=== PATIENT | male | born 1995 | race Caucasian/White ===

== ENCOUNTER 2020-04-20 00:53 | Emergency (ER) | payer BC ==
[2020-04-20] MEDS ORDERED: Albuterol HFA 18 Gm Inhaler ONE (01:03)
--- NOTE | 2020-04-20 01:11 | EDM.PDOC ---
ED HPI GENERAL MEDICAL PROBLEM - General Chief Complaint: Respiratory Problem Stated Complaint: MED. CLEARENCE Time Seen by Provider: 04/20/20 01:08 Source of Information: Reports: Patient History Limitations: Reports: No Limitations - History of Present Illness INITIAL COMMENTS - FREE TEXT/NARRATIVE: Patient is a 25-year-old male who presents today for wheezing. Patient is in police custody and his inhaler has and would not give it to him today. Patient denies any cough fevers or chills. Patient states he has been using inhaler daily since he has been out of his Breo. - Related Data Allergies Allergy/AdvReac Type Severity Reaction Status Date / Time No Known Allergies Allergy Verified 04/20/20 01:22 Home Meds: Home Meds Albuterol Sulfate [Albuterol Sulfate Hfa] 18 gm IH ASDIRECTED 04/20/20 [History] Fluticasone/Vilanterol [Breo Ellipta 200-25 MCG Inhalation Kit] 1 each IH ASDIR ECTED 04/20/20 [History] Fluticasone/Vilanterol [Breo Ellipta 200-25 MCG Inhalation Kit] 1 each IH DAILY 30 Days #1 blst.w.dev 04/20/20 [Rx] ED ROS GENERAL - Review of Systems Review Of Systems: See Below Constitutional: Reports: No Symptoms HEENT: Reports: No Symptoms Respiratory: Reports: Wheezing Cardiovascular: Reports: No Symptoms Endocrine: Reports: No Symptoms GI/Abdominal: Reports: No Symptoms : Reports: No Symptoms Musculoskeletal: Reports: No Symptoms Skin: Reports: No Symptoms Neurological: Reports: No Symptoms Psychiatric: Reports: No Symptoms Hematologic/Lymphatic: Reports: No Symptoms Immunologic: Reports: No Symptoms ED EXAM, GENERAL - Physical Exam Exam: See Below Exam Limited By: No Limitations General Appearance: Alert, No Apparent Distress Respiratory/Chest: No Respiratory Distress, Lungs Clear Cardiovascular: Normal Peripheral Pulses, Regular Rate, Rhythm GI/Abdominal: Normal Bowel Sounds, Soft, Non-Tender Back Exam: Full Range of Motion Extremities: Normal Inspection Neurological: Alert, Oriented Course - Vital Signs Last Recorded V/S: Last Vital Signs Temp 97.0 F 04/20/20 01:08 Pulse 97 04/20/20 01:08 Resp 16 04/20/20 01:08 BP 140/77 04/20/20 01:08 Pulse Ox 97 04/20/20 01:08 - Orders/Labs/Meds Orders: Active Orders 24 hr Category Date Time Status RT Post Treatment Assessment [RC] Click to Edit Care 04/20/20 01:16 Active RT Pre-Treatment Assessment [RC] Click to Edit Care 04/20/20 01:16 Active Meds: Medications Discontinued Medications Generic Name Dose Route Start Last Admin Trade Name Marco A PRN Reason Stop Dose Admin Albuterol Confirm 04/20/20 01:03 04/20/20 01:17 Ventolin Hfa Administered 04/20/20 01:04 Not Given Dose 18 gm .ROUTE .STK-MED ONE Albuterol 1 gm 04/20/20 01:16 04/20/20 01:18 Ventolin Hfa INH 04/20/20 01:17 2 puff QID ONE Administration - Re-Assessments/Exams Free Text/Narrative Re-Assessment/Exam: 04/20/20 01:24 Pt's breathing has improved. Patient will be discharged into police custody with refills of his home prescription. Departure - Departure Time of Disposition: 01:24 Disposition: Home, Self-Care 01 Condition: Good Clinical Impression: Asthma - Discharge Information *PRESCRIPTION DRUG MONITORING PROGRAM REVIEWED*: Not Applicable *COPY OF PRESCRIPTION DRUG MONITORING REPORT IN PATIENT ALLYN: Not Applicable Prescriptions: Fluticasone/Vilanterol [Breo Ellipta 200-25 MCG Inhalation Kit] 1 each IH DAILY 30 Days #1 blst.w.dev Instructions: Asthma, Adult Referrals: PCP,None [Primary Care Provider] - Forms: ED Department Discharge Additional Instructions: The following information is given to patients seen in the emergency department who are being discharged to home. This information is to outline your options for follow-up care. We provide all patients seen in our emergency department with a follow-up referral. The need for follow-up, as well as the timing and circumstances, are variable depending upon the specifics of your emergency department visit. If you don't have a primary care physician on staff, we will provide you with a referral. We always advise you to contact your personal physician following an emergency department visit to inform them of the circumstance of the visit and for follow-up with them and/or the need for any referrals to a consulting specialist. The emergency department will also refer you to a specialist when appropriate. This referral assures that you have the opportunity for follow-up care with a specialist. All of these measure are taken in an effort to provide you with optimal care, which includes your follow-up. Under all circumstances we always encourage you to contact your private physician who remains a resource for coordinating your care. When calling for follow-up care, please make the office aware that this follow-up is from your recent emergency room visit. If for any reason you are refused follow-up, please contact the [facility] Emergency Department at and asked to speak to the emergency department charge nurse. Please follow up with your primary care physician. If you do not have a primary care physician, see below: [facility] [address] [place] [id number] My [facility] [address] [place] [address] Follow-up with your primary care physician when you are released. Please continue to use your medications as needed. If you have any increased shortness of breath please return to the ED. Sepsis Event Note (ED) - Focused Exam Vital Signs: Vital Signs Temp Pulse Resp BP Pulse Ox 04/20/20 01:08 97.0 F 97 16 140/77 97 - My Orders Last 24 Hours: My Active Orders 04/20/20 01:16 RT Post Treatment Assessment [RC] Click to Edit RT Pre-Treatment Assessment [RC] Click to Edit - Assessment/Plan Last 24 Hours: My Active Orders 04/20/20 01:16 RT Post Treatment Assessment [RC] Click to Edit RT Pre-Treatment Assessment [RC] Click to Edit Plan: Is a 25-year-old male who presents today for wheezing. Patient without his inhalers while in police custody due to those been . Patient was given albuterol here and feels a lot better. Patient was already satting 97% on room air before the albuterol. Will prescribe patient his home meds and DC home.
[2020-04-20] MEDS ORDERED: Albuterol HFA 18 Gm Inhaler INH ONE (01:16)
== END 2020-04-20 01:38 | disposition home or self-care (01) ==
LOC: MW.ED 00:53
DX: J45.909 Unspecified asthma, uncomplicated (principal)
CPT/HCPCS: 99284; J3535-GY